=== PATIENT | female | born 1995 ===

== ENCOUNTER 2018-03-01 19:46 | Emergency (ER) | payer SELFPAY ==
[2018-03-01 19:56] VITALS: BP 119/68; PULSE 94; RESP 20; TEMP 98.3; O2SAT 98
--- NOTE | 2018-03-01 20:09 | C.PDOC ---
History Of Present Illness 22 year old female presents to ED with complaints of right breast pain for one month. She states pain is mild and discomfort, worse the week around her menstrual period. She noticed her right breast feels firm. Denies any fever, redness, swelling, discharge, bleeding. She denies any pelvic pain or . BREAST HISTORY: (-) breast implants, (-) recent mammogram, (-) biopsies, (-) ultrasound, (-) family history of breast cancer Time Seen by Provider: 03/01/18 19:57 Chief Complaint (Nursing): Breast Problem History Per: Patient History/Exam Limitations: no limitations Onset/Duration Of Symptoms: Days Past Medical History Reviewed: Historical Data, Nursing Documentation, Vital Signs Vital Signs: Last Vital Signs Temp 98.3 F 03/01/18 19:48 Pulse 94 H 03/01/18 19:48 Resp 20 03/01/18 19:48 BP 119/68 03/01/18 19:48 Pulse Ox 98 03/01/18 19:48 - Medical History PMH: No Chronic Diseases Surgical History: No Surg Hx Family History: States: Unknown Family Hx - Social History Hx Alcohol Use: No Hx Substance Use: No - Immunization History Hx Tetanus Toxoid Vaccination: No Hx Influenza Vaccination: No Hx Pneumococcal Vaccination: No Review Of Systems Except As Marked, All Systems Reviewed And Found Negative. Musculoskeletal: Positive for: Other (breast pain) Physical Exam - Physical Exam Appears: Well, Non-toxic, No Acute Distress Skin: Warm, Dry, No Rash Head: Atraumatic, Normacephalic Eye(s): bilateral: Normal Inspection, EOMI Neck: Normal ROM Chest: Symmetrical Cardiovascular: Rhythm Regular, No Murmur Respiratory: Normal Breath Sounds, No Rales, No Rhonchi, No Wheezing Back: Normal Inspection, No Decreased ROM Extremity: Bilateral: Atraumatic, Normal ROM Neurological/Psych: Oriented x3, Normal Speech Gait: Steady Additional Physical Exam Comments: Breasts: Symmetric. Right breast with lumpy tissue nontender around areola. Left breast soft. (-) dimpling of skin or other lesions, (-) rash, (-) erythema , (-) masses, (-) tenderness, (-) nipple discharge, (-) regional lymphadenopathy. ED Course And Treatment O2 Sat by Pulse Oximetry: 98 Medical Decision Making Medical Decision Making: Patient with right breast discomfort, and exam reveals fibrous breast tissue. No signs of cellulitis, mastitis or abscess. Patient is afebrile and in no distress. Recommend follow up in the clinic and with hay buckler Disposition Counseled Patient/Family Regarding: Diagnosis, Need For Followup - Disposition Referrals: Josefina Del Rosario MD [Staff Provider] - [facility]] Disposition: HOME/ ROUTINE Disposition Time: 20:19 Condition: GOOD Additional Instructions: Recomiende que tome Tylenol o Advil si tiene dolor Yamile un seguimiento con un gineclogo para mckenna evaluacin adicional y exmenes de rutina Instructions: Fibrocystic Breast Changes (DC) Print Language: MALAY - POA Present On Arrival: None - Clinical Impression Clinical Impression: Pain of breast, Fibrous breast lumps
== END 2018-03-01 20:41 | disposition home or self-care (01) ==
LOC: C.ER 19:46
DX: N64.4 Mastodynia (principal); N63.0 Unspecified lump in unspecified breast